=== PATIENT | male | born 1985 | race Caucasian/White ===

== ENCOUNTER 2017-06-05 22:10 | Emergency (ER) | payer OTHER, BC ==
[~2017-06-05] VITALS: Ht 172.7 cm; Wt 112.5 kg
[2017-06-05 22:22] VITALS: BP 144/94
== END 2017-06-06 01:02 | disposition home or self-care (01) ==
LOC: EME 22:10
PROC: 2W3CX1Z Immobilization of Right Lower Arm using Splint (ICD-10-PCS; principal; 2017-06-05)
DX: M79.644 Pain in right finger(s) (principal); S60.221A Contusion of right hand, initial encounter; Y04.2XXA Assault by strike against or bumped into by another person, initial encounter; Y92.149 Unspecified place in prison as the place of occurrence of the external cause; Y99.0 Civilian activity done for income or pay
CPT/HCPCS: 73110; 73130; 99281; 99283